=== PATIENT | female | born 1980 | race Caucasian/White ===

== ENCOUNTER 2018-10-11 09:33 | Emergency (ER) | payer SELFPAY ==
[2018-10-11 10:07] VITALS: TEMP 97.5
--- NOTE | 2018-10-11 10:18 | ED.PDOC ---
History of Present Illness - General Chief Complaint: ENT Problem Stated Complaint: sore throat Time Seen by Provider: 10/11/18 10:15 Source: patient - History of Present Illness Initial Comments: Patient presents with a sore throat for 4 days. She has also lost her voice. She says her left ear is painful and that she had a subjective fever yesterday. No N/V/D. No similarly sick contacts. No cough or rhinorrhea. No other complaints. Timing/Duration: other - 4 days Severity: moderate Improving Factors: nothing Worsening Factors: nothing Associated Symptoms: other - see HPI Allergies/Adverse Reactions: Allergies Aspirin Allergy (Verified 10/11/18 10:09) Hives Ibuprofen Allergy (Verified 10/11/18 10:09) Hives Morphine Adverse Reaction (Verified 10/11/18 10:09) Other Bloats stomach Naproxen Adverse Reaction (Verified 10/11/18 10:09) Other Causes blurred vision Penicillins Adverse Reaction (Verified 10/11/18 11:26) Other Bloats her stomach Home Medications: Ambulatory Orders Azithromycin [Zithromax Z-Vadim] 250 mg PO DAILY #6 tab 10/11/18 Review of Systems - Review of Systems Constitutional: States: see HPI EENTM: States: see HPI Respiratory: States: no symptoms reported Cardiology: States: no symptoms reported Gastrointestinal/Abdominal: States: no symptoms reported Genitourinary: States: no symptoms reported Musculoskeletal: States: no symptoms reported Skin: States: no symptoms reported Neurological: States: no symptoms reported Endocrine: States: no symptoms reported Hematologic/Lymphatic: States: no symptoms reported Past Medical History (General) - Patient Medical History Hx Stroke: No Hx Congestive Heart Failure: No Hx Diabetes: No Hx MRSA: No - Vaccination History Hx Tetanus, Diphtheria Vaccination: No Hx Influenza Vaccination: No Hx Pneumococcal Vaccination: No - Social History Hx Tobacco Use: Yes Hx Alcohol Use: No - Female History Patient is a Female of Child Bearing Age (10 -59 yrs old): No Family Medical History - Family History Mother Living Status: Cause of : CVA Physical Exam - Physical Exam General Appearance: Alert Eye Exam: bilateral normal Ears, Nose, Throat: abnormal TM (L) - left TM is bulging with serous fluid. t onsils are 2+ with white exudate. No rhinorrhea Neck: non-tender, full range of motion, lymphadenopathy (L) Respiratory: lungs clear, normal breath sounds Cardiovascular/Chest: normal peripheral pulses, regular rate, rhythm, no edema Gastrointestinal/Abdominal: normal bowel sounds, non tender, soft Progress - Progress Progress: 10/11/18 11:28 Rapid strep positive. Patient given RX for Z-pack due to PCN allergy. Care instructions given. E.R. warnings given. Questions were elicited and answered. Patient voiced understanding and agreement with the plan. Departure - Departure Clinical Impression: Streptococcal sore throat Disposition: Discharge to Home or Self Care Condition: Good Departure Forms: ED Discharge - Pt. Copy, Patient Portal Self Enrollment Instructions: DI for Ear Pain-Adult Diet: resume usual diet Activity: increase activity as tolerated Prescriptions: Azithromycin [Zithromax Z-Vadim] 250 mg PO DAILY #6 tab Home Medications: Ambulatory Orders Azithromycin [Zithromax Z-Vadim] 250 mg PO DAILY #6 tab 10/11/18
[2018-10-11 11:42] VITALS: BP 115/82; O2SAT 97
== END 2018-10-11 11:42 | disposition home or self-care (01) ==
LOC: ER 09:33
DX: J02.0 Streptococcal pharyngitis (principal); H92.02 Otalgia, left ear; Z88.0 Allergy status to penicillin; Z88.6 Allergy status to analgesic agent; Z88.5 Allergy status to narcotic agent; Z87.891 Personal history of nicotine dependence

== ENCOUNTER 2019-09-21 16:28 | Emergency (ER) | payer SELFPAY ==
[2019-09-21] MEDS ORDERED: SODIUM CHLORIDE 0.9% (FLUSH) 10 ML SYG IV PRN (18:21)
--- NOTE | 2019-09-21 18:22 | ED.PDOC ---
History of Present Illness - General Time Seen by Provider: 09/21/19 18:21 Source: patient - History of Present Illness Initial Comments: 38 yo female who presents with cc of right leg pain and chest pain. Right leg pain began yesterday, insidious onset, described as constant, 9/10 severity, located to right medial upper calf and radiates anterosuperiorly to distal thigh, pressure-like, worse with movement, nothing tried for relief. Reports she feels it is slightly larger than left but no redness/warmth. has been having chest pain intermittently since 3 days ago, first episode woke her up in the morning and was most severe 3 days ago, sharp, constant, severe, lasted several minutes and resolved spontaneously. States has recurred intermittently since then but not nearly as severe. Reports mild dyspnea since 4 days ago. Denies any cough, fevers, chills, abd pain, n/v/d. had a DVT in her RUE in 2007 and had a PE in 2014. Not on anticoagulation. Allergies/Adverse Reactions: Allergies Aspirin Allergy (Verified 10/11/18 10:09) Hives Ibuprofen Allergy (Verified 10/11/18 10:09) Hives Morphine Adverse Reaction (Verified 10/11/18 10:09) Other Bloats stomach Naproxen Adverse Reaction (Verified 10/11/18 10:09) Other Causes blurred vision Penicillins Adverse Reaction (Verified 10/11/18 11:26) Other Bloats her stomach Home Medications: Ambulatory Orders RX: Azithromycin [Zithromax Z-Vadim] 250 mg PO DAILY #6 tab 10/11/18 Cyclobenzaprine HCl [Flexeril] 5 mg PO BID PRN #30 tab 03/05/19 Methylprednisolone [Medrol Dose Vadim] 4 mg PO DAILY #1 tab 03/05/19 RX: Tramadol HCl 50 mg PO Q6H PRN 10 Days #15 tab 09/21/19 Review of Systems - Review of Systems Review of Systems: 09/21/19 20:21 as per HPI All other Systems: Reviewed and Negative Past Medical History (General) - Patient Medical History Hx Stroke: No Hx of COPD: No Hx Congestive Heart Failure: No Hx Hypertension: No Hx Diabetes: No Hx Cancer: Yes - Uterine Hx MRSA: No - Vaccination History Hx Tetanus, Diphtheria Vaccination: No Hx Influenza Vaccination: No Hx Pneumococcal Vaccination: No - Social History Hx Tobacco Use: Yes Hx Alcohol Use: Yes Hx Substance Use: No Hx Substance Use Treatment: No Hx Depression: No - Female History Patient : No - Hysterectomy Family Medical History - Family History Mother Living Status: Cause of : CVA Physical Exam - Physical Exam General Appearance: Alert, Comfortable, No apparent distress Eye Exam: bilateral normal Ears, Nose, Throat: hearing grossly normal, normal ENT inspection, normal pharynx Neck: non-tender, full range of motion, supple, normal inspection Respiratory: lungs clear, normal breath sounds, no respiratory distress, no accessory muscle use, other - moderate ttp to anterior chest wall without deformity or bruising Cardiovascular/Chest: normal peripheral pulses, regular rate, rhythm, no edema, no JVD, no murmur Gastrointestinal/Abdominal: non tender, soft, no organomegaly Back Exam: normal inspection, no CVA tenderness, no vertebral tenderness Extremity: normal range of motion, normal inspection, normal capillary refill, calf tenderness - mild to right upper medial calf without any noted swelling, bruising, redness, warmth, induration. 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 CXR no acute processes per my read as well. -Suspect chest pain likely MSK in nature given ttp on exam. Right leg pain possible strain vs spasm. -dc home in good condition, return warnings discussed. Advised close PCP f/u given her hx - she may need outpatient hypercoagulable work-up and also considered for indefinite oral anticoagulation for PPx against clots. Travis Remy MD Billing #[id number] - Results/Orders Results/Orders: 09/21/19 18:21 IV Care:Saline Lock per Protoc QSHIFT Telemetry ONCE 09/21/19 18:30 EKG STAT Laboratory Results - last 24 hr 09/21/19 09/21/19 09/21/19 18:40 18:40 18:40 WBC 6.9 RBC 4.47 Hgb 13.5 Hct 40.9 MCV 91.5 MCH 30.3 MCHC 33.1 RDW 12.3 Plt Count 235 MPV 8.1 Absolute Neuts (auto) 4.30 Absolute Lymphs (auto) 1.90 Absolute Monos (auto) 0.50 Absolute Eos (auto) 0.10 Absolute Basos (auto) 0.00 Neutrophils % 62.1 Lymphocytes % 27.2 Monocytes % 7.8 Eosinophils % 2.2 Basophils % 0.7 D-Dimer, Quantitative 0.26 Sodium 141 Potassium 3.4 L Chloride 103 Carbon Dioxide 29 Anion Gap 12.4 BUN 11 Creatinine 0.69 BUN/Creatinine Ratio 15.9 Random Glucose 86 Serum Osmolality 280.0 Calcium 9.3 Troponin I 09/21/19 18:40 WBC RBC Hgb Hct MCV MCH MCHC RDW Plt Count MPV Absolute Neuts (auto) Absolute Lymphs (auto) Absolute Monos (auto) Absolute Eos (auto) Absolute Basos (auto) Neutrophils % Lymphocytes % Monocytes % Eosinophils % Basophils % D-Dimer, Quantitative Sodium Potassium Chloride Carbon Dioxide Anion Gap BUN Creatinine BUN/Creatinine Ratio Random Glucose Serum Osmolality Calcium Troponin I < 0.02 - EKG/XRAY/CT EKG: Sinus - rate 70, no ST elevations or q waves, axis normal, intervals normal, no prior EKG for comparison Departure - Departure Clinical Impression: Musculoskeletal chest pain, Muscle strain, lower leg Time of Disposition: 20:25 Disposition: Discharge to Home or Self Care Condition: Good Departure Forms: ED Discharge - Pt. Copy, Patient Portal Self Enrollment Instructions: DI for Leg Pain, Chest Pain (DC) Diet: resume usual diet Activity: increase activity as tolerated Prescriptions: RX: Tramadol HCl 50 mg PO Q6H PRN 10 Days #15 tab PRN Reason: Pain Home Medications: Ambulatory Orders RX: Azithromycin [Zithromax Z-Vadim] 250 mg PO DAILY #6 tab 10/11/18 Cyclobenzaprine HCl [Flexeril] 5 mg PO BID PRN #30 tab 03/05/19 Methylprednisolone [Medrol Dose Vadim] 4 mg PO DAILY #1 tab 03/05/19 RX: Tramadol HCl 50 mg PO Q6H PRN 10 Days #15 tab 09/21/19 Additional Instructions: Continue Tylenol 650 mg every 6 hours as needed at home for pain. You may take Tramadol as directed for breakthrough pain. Do not drive or operate heavy machinery when taking this medication. Return if symptoms worsen or if other new or concerning symptoms arise. Follow up closely with your primary care doctor.
--- NOTE | 2019-09-21 19:06 | RAD ---
EXAM DESCRIPTION: XR Chest,1 View CLINICAL HISTORY: chest pain TECHNIQUE: Single frontal view of the chest is submitted. COMPARISON: None available for comparison FINDINGS: Heart: The cardiothoracic silhouette is within normal limits. Lungs: No focal consolidation. Mediastinum: Unremarkable Pleura: No appreciable effusion. No pneumothorax. Bones: Multilevel spondylosis. No acute fracture. Upper abdomen: Unremarkable IMPRESSION: No acute disease. Electronically signed by: Flavio Schofield MD 09/21/2019 7:04 PM [employer]ISSARY WORK[employer]
[2019-09-21 19:25] VITALS: BP 106/70; TEMP 97.6; O2SAT 99
[2019-09-21] MEDS ORDERED: traMADol HCL 50 MG TAB PO ONE (20:15)
== END 2019-09-21 20:45 | disposition home or self-care (01) ==
LOC: ER 16:28
DX: R07.89 Other chest pain (principal); S86.911A Strain of unspecified muscle(s) and tendon(s) at lower leg level, right leg, initial encounter; Z85.42 Personal history of malignant neoplasm of other parts of uterus; Z87.891 Personal history of nicotine dependence; X58.XXXA Exposure to other specified factors, initial encounter; Y92.9 Unspecified place or not applicable; Z88.6 Allergy status to analgesic agent; Z88.5 Allergy status to narcotic agent; Z88.0 Allergy status to penicillin; Z86.711 Personal history of pulmonary embolism; Z86.718 Personal history of other venous thrombosis and embolism

== ENCOUNTER → 2020-02-05 | Outpatient (CLI) | payer OTHER ==
--- NOTE | 2020-02-06 17:10 | MAM ---
EXAM DESCRIPTION: 3D Diagnostic, Bilateral (accession [id number]), Breast,Bilateral (accession [id number]): Ultrasound CLINICAL HISTORY: 39 yearsFemaleABNORMAL MAMMOGRAM bilateral regions of focal asymmetry upper outer quadrant. COMPARISON: Bilateral screening digital breast tomosynthesis December 30. TECHNIQUE: Bilateral LM projection full-field images, digital tomosynthesis technique. Bilateral 2-D digital full-field images: CC and LM projections. CAD available for 2-D images.. Transcutaneous scanning of the bilateral breasts. utilizing yao-scale and Doppler modes. Scanning performed by the programmer analyst and Dr. Sun. FINDINGS: The breast parenchymal density pattern is: Heterogeneously dense breast tissue, which may obscure small masses. No skin thickening or nipple retraction. Focal asymmetry is still present bilaterally. No definite mass or abnormal calcifications. Ultrasound: At the region of the interest in the upper outer quadrant right breast posteriorly, is a large region of fibroglandular tissues with surrounding fatty echotexture. No dominant soft tissue mass, no distinct cyst, no large calcifications. No overlying skin changes. Region of interest upper outer quadrant middle third left breast. Mostly fibroglandular tissues. Within these tissues is a well-defined anechoic cyst with circumscribed margins, wider than tall orientation, posterior acoustic enhancement and no vascularity. No dominant solid mass or large calcifications. No overlying skin changes. IMPRESSION: Benign exam. BIRAD CATEGORY: 2 BENIGN FINDINGS. RECOMMENDATIONS: FOLLOW UP: Return to routine digital bilateral mammographic screening, one year interval from December 2019. Written communication explaining the IMPRESSION and follow-up, will be mailed to the patient and referring health care provider. The FINDINGS and the FOLLOW-UP plan were reviewed in person with the patient after the examination. According to the [employer], yearly mammograms are recommended starting at age 40 and continuing as long as a woman is in good health. Any breast change noted on a breast self-exam should be reported promptly to the patient's healthcare provider. Breast MRI is recommended for women with an approximately 20-25% or greater lifetime risk of breast cancer, including women with a strong family history of breast or ovarian cancer and women who have been treated for Hodgkin's disease. A negative mammographic report should not delay tissue diagnosis in patients with significant clinical history or physical findings. Extremely dense breast tissue limits the sensitivity of digital mammography. Electronically signed by: Jose Sun MD 02/06/2020 5:08 PM CDT
== END ==
LOC: MAMMO 10:13
PROVIDERS: ATTEND Family Medicine
DX: N64.89 Other specified disorders of breast (principal)
CPT/HCPCS: 76641; 77066; G0279

== ENCOUNTER 2020-11-22 09:45 | Emergency (ER) | payer SELFPAY ==
--- NOTE | 2020-11-22 09:55 | ED.PDOC ---
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 States she was walking her dog on a leash and the dog saw a squirrel and tried to run after it. The leash jerked her right arm. Has had pain to right elbow and shoulder since. Denies falling or other injuries. Has not taken anything for pain and declines any pain medication at this time. Allergies/Adverse Reactions: Allergies Aspirin Allergy (Verified 11/22/20 09:59) Hives Ibuprofen Allergy (Verified 11/22/20 09:59) Hives Morphine Adverse Reaction (Verified 11/22/20 09:59) Other Bloats stomach Naproxen Adverse Reaction (Verified 11/22/20 09:59) Other Causes blurred vision Penicillins Adverse Reaction (Verified 11/22/20 09:59) Other Bloats her stomach Home Medications: Ambulatory Orders Azithromycin [Zithromax Z-Vadim] 250 mg PO DAILY #6 tab 10/11/18 Cyclobenzaprine HCl [Flexeril] 5 mg PO BID PRN #30 tab 03/05/19 Methylprednisolone [Medrol Dose Vadim] 4 mg PO DAILY #1 tab 03/05/19 Tramadol HCl 50 mg PO Q6H PRN 10 Days #15 tab 09/21/19 Review of Systems - Review of Systems Constitutional: Denies: chills, fever Respiratory: Denies: cough, short of breath Cardiology: Denies: chest pain, palpitations, syncope Gastrointestinal/Abdominal: Denies: abdominal pain, nausea Musculoskeletal: States: see HPI. Denies: back pain, neck pain Neurological: Denies: headache, numbness All other Systems: Reviewed and Negative Past Medical History (General) - Patient Medical History Hx Seizures: No Hx Stroke: No Hx Dementia: No Hx Asthma: No Hx of COPD: No Hx Cardiac Disorders: No Hx Congestive Heart Failure: No Hx Pacemaker: No Hx Hypertension: No Hx Thyroid Disease: No Hx Diabetes: No Hx Gastroesophageal Reflux: No Hx Renal Disease: No Hx Cancer: Yes - Uterine Hx of HIV: No Hx Hepatitis C: No Hx MRSA: No - Vaccination History Hx Tetanus, Diphtheria Vaccination: No Hx Influenza Vaccination: No Hx Pneumococcal Vaccination: No - Social History Hx Tobacco Use: Yes Hx Alcohol Use: Yes Hx Substance Use: No Hx Substance Use Treatment: No Hx Depression: No Hx Physical Abuse: No Hx Emotional Abuse: No Hx Suspected Abuse: No - Female History Patient : No - Hysterectomy Family Medical History - Family History Mother Living Status: Cause of : CVA Physical Exam - Physical Exam General Appearance: Alert, Comfortable, No apparent distress Neck: non-tender, full range of motion, supple, other - no vertebral tenderness to neck or back Cardiovascular/Respiratory: normal peripheral pulses, no respiratory distress Back Exam: no vertebral tenderness Mental Status: alert Skin Exam: normal color, warm/dry Comments: TTP diffusely to right shoulder and elbow. there is no edema or deformity. no clavicle tenderness. 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 2+ radial pulse Progress - Progress Progress: 11/22/20 13:26 No sign of fracture or dislocation on imaging. Pt is NVI. Will place splint for comfort and begin ROM exercises within 48 hours. RICE. Will f/u with pcp in 1-2 days for continued evaluation. SRP given. Declines pain medications for home. - Results/Orders Results/Orders: SHOULDER XRAY EXAM: XR Right Shoulder Complete, 2 Views CLINICAL HISTORY: injury TECHNIQUE: Two views of the right shoulder. COMPARISON: No relevant prior studies available. FINDINGS: Bones/joints: No abnormality noted. No acute fracture. No dislocation. Soft tissues: No abnormality noted. IMPRESSION: No abnormality noted. ELBOW XRAY PROCEDURE: XR Right Elbow Complete, 3 or More Views CLINICAL INDICATION: The patient is 40 years old and is Female; injury MAIN TECHNIQUE: Frontal, lateral and oblique views of the right elbow. COMPARISON: No relevant prior studies available. FINDINGS: BONES/JOINTS: No fracture or dislocation identified in the RIGHT elbow. No elbow effusion and no fat pad sign. Ulnotrochlear and radiocapitellar articulations are unremarkable. Olecranon and coronoid processes are intact. SOFT TISSUES: No radiopaque foreign body. IMPRESSION: No fracture or dislocation identified in the RIGHT elbow. Departure - Departure Clinical Impression: Sprain of shoulder and upper arm Qualifiers: Encounter type: initial encounter Laterality: right Qualified Code(s): S43.401A - Unspecified sprain of right shoulder joint, initial encounter Elbow sprain Qualifiers: Encounter type: initial encounter Laterality: right Qualified Code(s): S53.401A - Unspecified sprain of right elbow, initial encounter Time of Disposition: 12:05 Disposition: Discharge to Home or Self Care Condition: Good Departure Forms: ED Discharge - Pt. Copy, Patient Portal Self Enrollment Instructions: Shoulder Sprain (DC) Diet: resume usual diet Activity: increase activity as tolerated Referrals: Clarissa Mcnair MD [Primary Care Provider] - 1-2 Days Home Medications: Ambulatory Orders Azithromycin [Zithromax Z-Vadim] 250 mg PO DAILY #6 tab 10/11/18 Cyclobenzaprine HCl [Flexeril] 5 mg PO BID PRN #30 tab 03/05/19 Methylprednisolone [Medrol Dose Vadim] 4 mg PO DAILY #1 tab 03/05/19 Tramadol HCl 50 mg PO Q6H PRN 10 Days #15 tab 09/21/19
[2020-11-22 09:59] VITALS: BP 114/78
--- NOTE | 2020-11-22 11:22 | RAD ---
PROCEDURE: XR Right Elbow Complete, 3 or More Views CLINICAL INDICATION: The patient is 40 years old and is Female; injury MAIN TECHNIQUE: Frontal, lateral and oblique views of the right elbow. COMPARISON: No relevant prior studies available. FINDINGS: BONES/JOINTS: No fracture or dislocation identified in the RIGHT elbow. No elbow effusion and no fat pad sign. Ulnotrochlear and radiocapitellar articulations are unremarkable. Olecranon and coronoid processes are intact. SOFT TISSUES: No radiopaque foreign body. IMPRESSION: No fracture or dislocation identified in the RIGHT elbow. Electronically signed by: Drew Phoenix MD 11/22/2020 11:20 AM [facility]
--- NOTE | 2020-11-22 12:02 | RAD ---
EXAM: XR Right Shoulder Complete, 2 Views CLINICAL HISTORY: injury TECHNIQUE: Two views of the right shoulder. COMPARISON: No relevant prior studies available. FINDINGS: Bones/joints: No abnormality noted. No acute fracture. No dislocation. Soft tissues: No abnormality noted. IMPRESSION: No abnormality noted. Electronically signed by: Brittani Mayfield MD 11/22/2020 12:00 PM [facility]
[2020-11-22 12:22] VITALS: TEMP 98.2; O2SAT 99
== END 2020-11-22 12:08 | disposition home or self-care (01) ==
LOC: ER 09:45
DX: S43.401A Unspecified sprain of right shoulder joint, initial encounter (principal); S53.401A Unspecified sprain of right elbow, initial encounter; X50.9XXA Other and unspecified overexertion or strenuous movements or postures, initial encounter; Y93.K1 Activity, walking an animal; Z87.891 Personal history of nicotine dependence; Z85.42 Personal history of malignant neoplasm of other parts of uterus; Z88.6 Allergy status to analgesic agent; Z88.5 Allergy status to narcotic agent; Z88.0 Allergy status to penicillin; Y92.9 Unspecified place or not applicable